=== PATIENT | male | born 1950 | race Caucasian/White ===

== ENCOUNTER 2017-04-04 12:38 | Emergency (ER) | payer MEDICARE, OTHER ==
[2017-04-04 12:44] VITALS: BP 156/82
[2017-04-04] MEDS ORDERED: PROPARACAINE 0.5% OPHTH DROPS 15 ML ONE (12:47)
[2017-04-04] MEDS ORDERED: ERYTHROMYCIN OPHTH OINT 1 GM TUBE LEFTEYE STA (13:11)
--- NOTE | 2017-04-04 13:11 | ED Physician Documentation ---
PD HPI OPHTHO - Stated complaint Stated Complaint: L EYE INJURY - Chief complaint Chief Complaint: Heent - History obtained from History obtained from: Patient - History of Present Illness Timing - onset: Today (Gardening this morning, leaned over and contacted a Fern with his left cornea and has significant pain and decreased vision. No other injuries.) Review of Systems Constitutional: denies: Fever, Chills Eyes: reports: Decreased vision, Irritation. denies: Loss of vision, Photophobia, Discharge Ears: denies: Loss of hearing, Ear pain PD PAST MEDICAL HISTORY - Present Medications Home Medications: Ambulatory Orders Medication Instructions Recorded Confirmed Erythromycin Base [Erythromycin] 1 applic OP 5XD 7 Days 04/04/17 - Allergies Allergies/Adverse Reactions: Allergies Allergy/AdvReac Type Severity Reaction Status Date / Time No Known Drug Allergies Allergy Verified 04/04/17 12:44 PD ED PE NORMAL - Vitals Vital signs reviewed: Yes - General General: Alert and oriented X 3, No acute distress - HEENT HEENT: PERRL, EOMI, Other (On fluorescein examination there is a large but shallow corneal abrasion on the left eye with a negative Willie sign.) - Neck Neck: Supple, no meningeal sign, No bony TTP - Neuro Neuro: Alert and oriented X 3, Normal speech - Psych Psych: Normal mood, Normal affect Results - Vitals Vitals: Vital Signs - 24 hr 04/04/17 12:41 Temperature 36.5 C Heart Rate 51 L Respiratory 17 Rate Blood Pressure 156/82 H O2 Saturation 100 Oxygen O2 Source Room air Departure - Departure Disposition: 01 Home, Self Care Clinical Impression: Corneal abrasion, left Qualifiers: Encounter type: initial encounter Qualified Code(s): S05.02XA - Injury of conjunctiva and corneal abrasion without foreign body, left eye, initial encounter Condition: Good Record reviewed to determine appropriate education?: Yes Instructions: ED Eye Injury Corneal Abrasion Follow-Up: Ron Funk MD [Provider Admit Priv/Credential] - Within 3 Days Prescriptions: Erythromycin Base [Erythromycin] 1 applic OP 5XD 7 Days Comments: Your blood pressure was elevated today on check into the emergency department. This does not mean that you have hypertension, it is a common phenomenon to come to the emergency department and have elevated blood pressure. I recommend that she see her primary care physician within the week to have it rechecked when you are feeling better.
[2017-04-04] MEDS ORDERED: PROPARACAINE 0.5% OPHTH DROPS 15 ML LEFTEYE STA (13:12)
== END 2017-04-04 13:15 | disposition home or self-care (01) ==
LOC: ED 12:38
DX: S05.02XA Injury of conjunctiva and corneal abrasion without foreign body, left eye, initial encounter (principal); W22.8XXA Striking against or struck by other objects, initial encounter; Y93.H2 Activity, gardening and landscaping; Y92.007 Garden or yard of unspecified non-institutional (private) residence as the place of occurrence of the external cause; R03.0 Elevated blood-pressure reading, without diagnosis of hypertension
CPT/HCPCS: 99283; J3490

== ENCOUNTER 2018-04-21 13:12 | Outpatient (CLI) | payer MEDICARE, OTHER ==
--- NOTE | 2018-04-22 15:38 | MRI Report ---
Procedure Date: 04/21/2018 Accession Number: [id number] / [id number] Procedure: MRI - Cervical Spine W/O CPT Code: FULL RESULT: EXAM: MRI CERVICAL SPINE WITHOUT CONTRAST EXAM DATE: 04/21/2018 01:53 PM. CLINICAL HISTORY: Neck pain, pain in both hands. COMPARISONS: None. TECHNIQUE: Multiplanar, multisequence T1-weighted and fluid-sensitive sequences of the cervical spine without contrast. Other: None. FINDINGS: Alignment: No scoliosis or spondylolisthesis. Neurologic Structures: The visualized posterior fossa structures are unremarkable. No signal abnormality in the visualized spinal cord. Bone Marrow: No gross fractures or bone lesions. Moderate to severe bone marrow edema at the right C2-C3 facet. Interspace Levels/Facets: C1-C2: Mild degenerative change anteriorly. C2-C3: Minimal disk osteophyte complex. Moderate to severe right and mild left facet hypertrophy. Minimal central canal stenosis. Moderate to severe right and mild left neural foramen stenosis. C3-C4: Minimal disk osteophyte complex. Mild bilateral facet hypertrophy. Minimal central canal stenosis. Mild bilateral neural foramen stenosis. C4-C5: Small disk osteophyte complex. Mild bilateral facet hypertrophy. Minimal central canal stenosis. Moderate bilateral neural foramen stenosis. C5-C6: Small disk osteophyte complex with right paracentral disk protrusion. Moderate bilateral facet hypertrophy. Mild central canal stenosis with subtle mass effect on the anterior aspect cervical cord. Mild bilateral neural foramen stenosis. C6-C7: Small disk osteophyte complex with small central disk protrusion. Moderate bilateral facet hypertrophy. Mild central canal stenosis with subtle mass effect on the anterior aspect cervical cord. Mild bilateral neural foramen stenosis. C7-T1: Mild bilateral facet hypertrophy. No stenosis. T1-T2: Sagittal images only. Minimal disk osteophyte complex. Mild bilateral facet hypertrophy. Bilateral neural foramen stenosis. T2-T3: Sagittal images only. No gross stenosis. Musculature: No focal edema or fatty atrophy. Other: The paravertebral and prevertebral soft tissues are unremarkable. IMPRESSION: 1. Mild degenerative disk and moderate to severe degenerative facet changes. 2. Moderate to severe bone marrow edema at the right C2-C3 facet joint. 3. Small disk osteophyte complexes and protrusions at C5-C6 and C6-C7 results in mild central canal stenosis. 4. Disk osteophyte complexes at C2-C3, C3-C4, and C4-C5 results in minimal central canal stenosis. 5. 9 degrees of neural foramen stenosis, moderate to severe at C2-C3 on the right and moderate at C4-C5 bilaterally. [facility]
== END 2018-04-21 13:13 | disposition home or self-care (01) ==
LOC: DI 13:12
PROVIDERS: ATTEND Psychiatry & Neurology Neurology
DX: M50.222 Other cervical disc displacement at C5-C6 level (principal); M50.31 Other cervical disc degeneration, high cervical region; M47.892 Other spondylosis, cervical region; M48.02 Spinal stenosis, cervical region
CPT/HCPCS: 72141